=== PATIENT | male | born 1945 | race Caucasian/White ===

== ENCOUNTER 2020-06-08 05:14 | Day surgery (SDC) | payer MEDICARE, SELFPAY ==
--- NOTE | 2020-05-25 13:04 | HP.PCM_ITS ---
History and Physical History and Physical Patient Name: Miguel A Bowen : 1945 From: LEOPOLDO NASSAR NP DATE OF SURGERY: 06/08/2020 SCHEDULED PROCEDURE: Direct anterior right total hip arthroplasty HISTORY OF PRESENT ILLNESS: Preoperative history and physical exam was performed on May 24, 2020. This is a 74-year-old male was been having ongoing right hip pain for over 5 years that has progressively gotten worse over the last 7 months. His pain is 3 on a scale of 10 and 8 on a scale of 10 with activity. He describes the pain as constant, aching, sharp, stabbing and sore. The pain is worse with prolonged sitting and the use of stairs. He has had multiple near falls due to the hip pain. He does note start up pain. The hip pain does wake him at night. The patient reports inability to perform activities of daily living including dressing showering and bathing. Previous treatments include rest, heat, elevation and nonsteroidal anti-inflammatories. He occasionally uses a cane to ambulate with. The patient has a medical history pertinent for hypertension and T-cell lymphoma. Surgical clearance will be obtained from Dr. Mukherjee. The patient denies chest pain, fevers, chills, shortness of breath, difficulty breathing or recent infections. After failing conservative measures and discussing treatment options with Dr. Manohar Sadler the patient does wish to proceed with a right total hip arthroplasty. REVIEW OF SYSTEMS: ROS: Const: Denies change in appetite, fever and weight change. CV: Denies chest pain, heart murmur and irregular heartbeat. Resp: Denies cough, pneumonia, shortness of breath, tuberculosis and wheezing. GI: Denies constipation, diarrhea, heartburn, nausea, rectal itching, bloody stools and vomiting. : Denies incontinence. Musculo: Reports gait disturbance, trouble walking and weakness, but denies leg swelling and pain. Skin: Denies Raynaud's, history of shingles and tattoo. Neuro: Denies ambulatory dysfunction, dizziness, numbness/tingling and tremor. Psych: Denies anxiety, insomnia and stress. Pavel/Lymph: Denies anemia, bleeding/bruising tendency and past transfusion. Reviewed, no changes. PAST MEDICAL HISTORY: Advance Care Plan: No Advance Directives Effective Date: 04/14/2020 PMH: Medical Problems: Arthritis, Cancer, High Blood Pressure Accidents: None Surgical Hx: Gallbladder - (2009) [facility] - (2011) [facility] Complications: None Assistive Devices: Glasses, Dentures, None - (04/14/2020) Reviewed, no changes. SOCIAL HISTORY: SH: Marital: .Occupation: Retired.Work Status: Retired.Hand Dominance: Right- handed. Personal Habits: Cigarette Use: Never Smoked Cigarettes.Smokeless Tobacco: Never Used Smokeless Tobacco.E-Cigarette Use: Never used.Alcohol: Occasionally.Drug Use: Denies Use.Enjoy Exercising: Exercises 1-3 X/Week. Reviewed, no changes. VITALS: Ht: 66.5 Wt: 175lb Wt k.380 BMI: 27.8 BP: 142/88 Pulse: 88 Resp: 16 T: 98.1 T: 36.7C ALLERGIES: No Known Drug Allergy MEDICATIONS: Oxycodone HCL 5 mg 1-2 tab by mouth every 4 hours, Meloxicam 7.5 mg 1 by mouth twice a day, Promethazine HCL 12.5 mg 1-2 tablets by mouth every 6 hours, Famotidine 20 mg 1 by mouth every day, Florajen3 1po qday, Olmesartan Medoxomil/Hydrochlorothiazide 40-12.5 mg 1po qday, Centrum Silver 1po qday, Vitamin D3 1000 Unit 1po qday, Vitamin E 400 Unit 1po qday, Magnesium 250 mg 1po qday, Saw [place] 450 mg 2po qday, Calcium 600 mg 1po qday, [place]-3 Krill Oil 500 mg 1po qday PRE-OP EXAM: General appearance:NORMAL Other: Eyes: Conjunctivae and lids: NORMAL Pupils: ERR Ears, Nose, Mouth, and Throat: NORMAL Other: Inspection of lips, teeth and gums: NORMAL Other: Respiratory: Assessment of respiratory effort: NORMAL Other: Auscultation of lungs: clear to auscultation no wheezes, rhonchi or rales. Cardiovascular: Auscultation of heart: regular rate and rhythm, no murmurs, gallops or rubs. Gastrointestinal: Exam of abdomen: soft, nontender, nondistended bowel sounds present. Neurological: see below Psychiatric: Orientation to time, place and person: NORMAL Other: Mood and affect: NORMAL Other: PHYSICAL EXAMINATION: The patient rises slowly from his chair with the use of bilateral hands to get up. The patient ambulates with an antalgic gait. His right foot is externally rotated ambulation. Skin is warm, dry and intact. Obligatory external rotation with flexion. Flexion to 95. Internal rotation to 10. 25 external rotation. Pain with flexion, adduction and internal rotation. Right lower extremity is 3 mm shorter as compared to the left. Negative straight leg raise. Sensation intact to light touch. IMAGING STUDIES: 3 views of right hip including AP pelvis and AP hip and crossfire lateral obtained on April 14, 2020 reviewed reveals joint space narrowing, subchondral sclerosis and osteophyte formation consistent with severe osteoarthritis. The patient has cysts with bony erosion of the acetabulum. IMPRESSION: 1. Osteoarthritis, right hip 2. Hypertension 3. Overweight, BMI 27.8 PLAN: Dr. Manohar Sadler did discuss and review with the patient all treatment options including surgical versus nonsurgical. The patient does wish to proceed with the above-stated procedure. Potential risk, benefits and complications of the procedure were discussed in detail including but not limited to , infection, nerve and blood vessel damage, persistent pain, numbness, tingling, paresthesia, blood clot, pulmonary embolism and requirement for possible further surgery. The patient expressed full understanding and has no further questions for the doctor. The patient does agree to proceed with the above-stated procedure and has signed the surgery consent form. The patient was given prescriptions for the following medications at his preoperative visit: Oxycodone, promethazine and meloxicam. He was instructed to peanut picker over-the- counter aspirin 81 mg, extra strength Tylenol 500 mg and senna. He will bring a walker to the hospital the day of his surgery. Discussed with the patient the risks associated with the COVID-19 virus including the risk of exposure while at the hospital. The patient was reassured local hospitals have low infection rates and taken all necessary precautions to limit patient exposure to COVID-19. Limiting the patient's time in the hospital may decrease their exposure to COVID-19. The patient was notified that we will need to comply with any screening or testing the hospital wishes to perform and that surgery may be delayed for any positive test results. I have reviewed the [place] Automated Rx Reporting System (OARRS) report for this patient for refill pattern and other prescriber involvement as part of the appropriate surveillance for the provision of acute and chronic controlled medications. The report was requested and reviewed on the date of this entry and was considered in the prescribing process. This dictation was created using voice recognition software. Phonetic and/or grammatical errors may exist. ___ I have re-examined the patient. There are no clinical changes since date of exam. ___ See progress notes for changes. ___ Dictated on admission Date: Time: Signature:
[2020-06-08] VITALS (19 sets, daily range): BP systolic 92–143; BP diastolic 41–80; PULSE 77–102; RESP 16; TEMP 36–37.6; O2SAT 95–100; BMI 27.3
[2020-06-08] MEDS: Lactated Ringers 1,000 ML 999 ML IV ×2 (06:22→10:00)
[2020-06-08] MEDS: Celecoxib 200 MG Capsule 400 MG PO (06:23)
[2020-06-08] MEDS: Acetaminophen 500 MG Tablet 1000 MG PO ×2 (06:24→14:30)
[2020-06-08] MEDS: Gabapentin 600 MG Tablet PO (06:24)
[2020-06-08 06:30] LABS: Bedside Glucose 173 mg/dL (70-110)
[2020-06-08] MEDS: Tamsulosin HCl 0.4 MG Capsule PO (07:20)
--- NOTE | 2020-06-08 07:30 | RAD_ITS ---
STUDY: X-RAY - PELVIS AND RIGHT HIP REASON FOR EXAM: Male, 74 years old. Right total hip replacement in OR TECHNIQUE: 2 views of the pelvis and hip. COMPARISON: None. FINDINGS: Intraoperative imaging provided for right hip replacement. RAD/Hip 1 view with Pelvis IMPRESSION: Intraoperative imaging provided for right hip replacement. Electronically Signed: Vasquez Fernandez, at 12:33 EDT , Service support ,
[2020-06-08] MEDS: Cefazolin 2 GM in 0.9% Normal Saline 100 ML IV (07:33)
[2020-06-08] MEDS: Cefazolin 1 GM/50 ML BAG IV (07:39)
--- NOTE | 2020-06-08 08:52 | PCM.OPRPT ---
Report of Operation Date of Procedure: 06/08/20 Pre-Operative Diagnosis: Right hip primary osteoarthritis Post-Operative Diagnosis: Right hip primary osteoarthritis Surgery/Procedure Performed:: Right minimally invasive direct anterior hip replacement Description of Surgical Findings:: Stable hip with equal leg lengths Type of Anesthesia:: Spinal Anesthesiologist: Oleg[address] Special Medications: 2 g Ancef, 1 g TXA at incision, 1 g TXA closure, 10 mg Decadron, joint cocktail (5 mg Duramorph, 30 mL of 0.5% Ropivicaine, 1000 units of epinephrine, 30 mg of Toradol) Estimated Blood Loss (mL): 200 ml Fluids Replaced: 1700 mL crystalloid Description of Procedure: Components used: 1. Accolade 2 Grulla femoral stem size 6 127? 2. Veda trident 2 acetabular shell size 52 mm 3. Veda X3 polyethylene E 4. Grulla Biolox delta 36mm, -5mm femoral head Brief history operative indications: 74 yo m who failed conservative measures for their hip osteoarthritis. X-rays were consistent with osteoarthritis including joint space narrowing, osteophyte formation and subchondral cysts. Total hip replacement was discussed with the patient with risks and benefits including but not limited to blood loss, DVTs, PEs, neurovascular damage, dislocation, general risks of anesthesia including loss of life. Patient demonstrated an understanding medical clearance is obtained the patient was consented for surgery. Procedure: On the date of procedure the patient's R hip was marked in the preoperative area. Patient was then taken back to the operating room where anesthesia assumed control of the C-spine and airway and administered anesthetic. Patient was transferred to the operating table and placed in the supine position. The hips were placed at the break of the bed and a sacral bump was placed. The R lower extremity was then prepped out in a sterile fashion using chlorhexidine while the surgeon scrubbed. The PA was vital in the positioning of the patient. Upon reentering the room the R lower extremity was draped in the standard orthopedic fashion and the incision was marked. A timeout was called and everyone agreed upon the side, the site, the procedure be performed, antibody given, and patient's identity. At this time incision was made through skin, subcutaneous tissue, and fat down to fascia. The fascia was then incised and the TFL was retracted laterally. A retractor was placed on the lateral border of the femoral neck. Attention was directed to the inferior portion of the approach and all crossing vessels were identified and appropriately coagulated. A retractor was then placed on the medial portion of the femoral neck. The anterior capsule was then cleared of all soft tissue and then H shaped capsulotomy was made. The retractors were then placed inside the capsule. The femoral neck was identified and a cleanup cut was made. At this time a power corkscrew was used to remove the femoral head. Attention was then turned toward the acetabulum where the soft tissues were appropriately retracted and the acetabulum was sequentially reamed to 52 mm. A 52 mm cup was then selected and impacted into place. Acetabular liner was impacted into place and locking mechanism was verified. The position of the acetabular cup was then verified under live fluoroscopy. Attention was then turned to the femur. Soft tissue releases on the medial and lateral femoral neck were appropriately done, the leg was externally rotated and lateralized. A Montalvo retractor was placed medially and proximally to the greater trochanter this allowed appropriate visualization and exposure of the femoral canal. Rongeour was then used to remove excess lateral bone. A canal finder and entry broach were used to open the proximal canal. Once we verified we were down the femoral canal we subsequently broached up to a size 6 femur. The appropriate neck was placed in the previously selected head was trialed with a -5 mm neck. Traction was pulled and the hip was reduced with internal rotation. Once it was appropriately reduced and stability was checked. There was minimal shuck, equal leg lengths and appropriate stability with hyperextension and external rotation as well as with 90? flexion and internal rotation. Fluoroscopy was then also used to verify the position of the components and leg lengths using the contralateral side for comparison. The trial components were then dislocated the proximal femur was again exposed and the components were removed from the wound. The final components were verified and opened. The wound was copiously irrigated out with normal saline. The acetabulum was checked for any residual debris. The final components were placed and impacted. Traction and internal rotation were again used to reduce the hip. After adequate reduction the hip remained stable with appropriate leg lengths. The final components were once again checked with live fluoroscopy and were found to be satisfactory. The wound was then copiously irrigated with normal saline once more, and hemostasis was obtained. Closure was then done using #1 Vicryl runner to close the fascia. A 2-0 vicryl interuppted sutures were used to close the subcutaneous skin. A 3-0 Monocryl and Steri-Strips were used for final skin closure. A Silverlon dressing was placed. Patient was awakened by anesthesia and transferred [facility] Patient was then transferred to the PACU for recovery. Postoperative plan: Patient will get 24 hours postop antibiotics. Patient will get in-house physical therapy and will be weight-bear as tolerated. Patient will follow up in office in 2 weeks for a wound check and x-rays. - Complications No intraoperative complications - Admit VTE Documentation VTE Present on Admission: No VTE Mechan Device Prophylaxis: SCD's, Thigh High JUNIOR Hose VTE Pharm Prophylaxis ordered?: Yes
--- NOTE | 2020-06-08 10:06 | RAD_ITS ---
STUDY: X-RAY - PELVIS AND RIGHT HIP REASON FOR EXAM: Male, 74 years old. PORTABLE POST OP RIGHT HIP. TECHNIQUE: 2 views of the pelvis and hip. COMPARISON: Comparison is made with prior study done earlier today. FINDINGS: The patient is status post right total hip replacement. There is good alignment. Postoperative soft tissue changes. RAD/Hip Min 2 Views (Portable) IMPRESSION: Status post right total hip replacement. There is good alignment. Postoperative soft tissue changes. Electronically Signed: Vasquez Fernandez, at 13:31 EDT , Service support ,
[2020-06-08] MEDS: Lactated Ringers 1,000 ML 125 ML IV (11:26)
== END 2020-06-08 15:35 | disposition home or self-care (01) ==
LOC: SDC 05:15 → AC 05:24
PROVIDERS: Anesthesiology; PCP Family Medicine; Referring Provider Specialist; Visit Provider Specialist
PROC: (CPT 27284; principal; 2020-06-08 07:05)
DX: M16.11 Unilateral primary osteoarthritis, right hip (principal); I10 Essential (primary) hypertension; K21.9 Gastro-esophageal reflux disease without esophagitis; E66.3 Overweight; Z68.27 Body mass index [BMI] 27.0-27.9, adult; Z79.899 Other long term (current) drug therapy; Z11.59 Encounter for screening for other viral diseases; Z79.1 Long term (current) use of non-steroidal anti-inflammatories (NSAID)
CPT/HCPCS: 01214; 27130; 73501; 73502; 76000; 82962; 87081; 87635; 94799; 97162; 97166; C1776; G2023; J7120; J2405; U0003

== ENCOUNTER 2020-11-16 13:15 | Emergency (ER) | payer MEDICARE, SELFPAY ==
[2020-06-08 05:54] VITALS: BMI 27.3
[2020-11-16 13:16] VITALS: BP 179/105; PULSE 94; RESP 16; TEMP 36.5; O2SAT 98; BMI 29.1
--- NOTE | 2020-11-16 13:16 | CT_ITS ---
STUDY: CT HEAD STROKE PROTOCOL W/O CONTRAST INJECTION REASON FOR EXAM: Male, 75 years old. CVA, acute neuro deficit, stroke suspected. RADIATION DOSAGE (If Supplied By Facility): CTDIvol = ( 44.99 ) mGy, DLP = ( 796.11 ) mGycm TECHNIQUE: Transaxial CT imaging of the brain was performed without administration of intravenous contrast material. Individualized dose optimization techniques were used for this CT. COMPARISON: No relevant priors. FINDINGS: Normal soft tissue structures. Normal calvarium. There is mild cerebral atrophy with widening of the extra-axial spaces and ventricular dilatation. There are areas of decreased attenuation within the white matter tracts of the supratentorial brain, consistent with microvascular disease changes. Normal basal ganglia and thalami. Normal brainstem. Normal cerebellum. There is no intracranial hemorrhage. There are no findings of an acute ischemic infarction. Normal visualized paranasal sinuses. CT/STROKE Brain/Head without Cont IMPRESSION: Chronic involutional changes of the brain. N.B. : The above information has been verbally conveyed by Vasquez Fernnadez to Dr Guanakito MD, on 11/16/2020 13:37:31 (ET). Electronically Signed: Vasquez Fernandez, at 13:38 EST , Service support ,
--- NOTE | 2020-11-16 13:18 | ED.DCSUM_ITS ---
History of Present Illness Chief Complaint: Neuro S/Sx Informant: Patient, Sales Administration Manager Onset: Today Current Severity: Mild Maximum Severity: Mild Narrative: Patient brought in by EMS as a possible stroke. Patient reports not remembering anything that he did after 930 this morning. He reportedly talked to his on the phone about noon and she stated that he seemed confused and maybe his speech was slightly altered. Patient does state that he is starting to remember more details about what happened today. He denies any paresthesias, problems with speech, or weakness. - Past Medical History (1) Hypertension Status: Chronic Past Medical History - Allergies and Home Meds Allergies/Adverse Reactions: Allergies No Known Allergies Allergy (Verified 11/16/20 13:29) Primary Care Physician: Juan Mukherjee MD [Primary Care Provider] - Surgical History: total hip arthroplasty Lives: Spouse/ Significant Other Smoking Status: Never smoker Review of Systems General: Denies: Chills, Fever Eyes: Denies: Visual changes - bilaterally ENT: Denies: Bilateral ear pain Cardiovascular: Denies: Chest pain Respiratory: Denies: Dyspnea, Cough Gastrointestinal: Denies: Abdominal pain, Vomiting, Diarrhea Genitourinary: Denies: Dysuria Musculoskeletal: Denies: Swelling, Extremity Pain Skin: Denies: Rash Neurological: Denies: Headache, Weakness, Parasthesia Hematologic: Denies: Easy bruising, Easy bleeding Allergy: Denies: Uticaria Physical Exam Inital Vital Signs reviewed: Yes General: Well nourished, Well developed Head: Normocephalic ENT: Moist mucous membranes Neck: Supple Cardiovascular: Regular rate, Regular rhythm Respiratory: No distress, CTA bilaterally Abdomen: Soft, Nontender, Normal bowel sounds Extremities: Nontender Skin: Normal color Neurological: Alert, Oriented x3, Normal Strength, Normal Sensation, - - NIH equals 0 at the time of my exam. Psychological: Normal affect Diagnostic/Tx/Re-eval Impressions Brain CT 11/16/20 13:16 IMPRESSION: Chronic involutional changes of the brain. N.B. : The above information has been verbally conveyed by Vasquez Fernandez to Dr Guanakito MD, on 11/16/2020 13:37:31 (ET). Electronically Signed: Vasquez Fernandez, at 13:38 EST , Service support , ADDENDUM: 11/16/20 1345 IMPRESSION: Chronic involutional changes of the brain. N.B. : The above information has been verbally conveyed by Vasquez Fernandez to Dr Guanakito MD, on 11/16/2020 13:37:31 (ET). Electronically Signed: Vasquez Fernandez, at 13:38 EST , Service support , Brain MRI 11/16/20 13:33 IMPRESSION: 1. No acute findings. 2. Unremarkable age-appropriate brain. Electronically Signed: Antony Mukherjee, at 16:12 EST Tel , Service support , Chest X-Ray 11/16/20 13:45 IMPRESSION: Cardiomegaly with low volume inspiration and bibasilar atelectasis. No acute finding. Electronically Signed: Gunnar Greenwood MD at 14:02 EST , Service support , 11/16/20 13:16 STROKE Brain/Head without Cont [CT] Stat 11/16/20 13:33 Brain without Contrast [MRI] Stat 11/16/20 13:45 Chest 1 View [RAD] Stat Laboratory Results 11/16/20 11/16/20 11/16/20 13:14 13:14 13:14 WBC 7.7 RBC 4.65 Hgb 14.6 Hct 42.9 MCV 92.3 MCH 31.4 MCHC 34.0 RDW Std Deviation 47.6 H RDW Coeff of Alfred 14.1 Plt Count 280 MPV 9.7 Immature Gran % (Auto) 0.400 Neut % (Auto) 56.4 Lymph % (Auto) 33.2 [place] % (Auto) 7.8 Eos % (Auto) 1.4 Baso % (Auto) 0.8 Absolute Neuts (auto) 4.3 Absolute Lymphs (auto) 2.55 Nucleated RBC % 0 PT 12.1 INR 0.9 APTT 26.2 Sodium 139 Potassium 3.9 Chloride 103 Carbon Dioxide 29.0 Anion Gap 7 BUN 20 H Creatinine 1.10 Estim Creat Clear Calc 53.41 Est GFR (MDRD) Af Amer 84 Est GFR (MDRD) Non-Af 69 BUN/Creatinine Ratio 18.2 Glucose 124 H Calcium 9.2 Troponin I < 0.015 - EKG Initial EKG Interpretation: Sinus Rhythm - Sinus at 96 with PACs. No acute ischemia. - Medical Decision Making Patient was made a stroke alert by prehospital arrival. On arrival patient's NIH score is 0. [facility] neurologist did be met and examined the patient on the computer. She suggested obtaining a MRI and if negative diagnosis would be transient global amnesia. MRI is obtained and unremarkable. At this time patient states he is remembering more and really has limited deficit at this point as far as his memory is concerned. Patient will be discharged home with his . Return instructions are provided. ED Disposition - Plan for ED Patient: Disposition: Home or Assisted Living Diagnosis: Transient global amnesia Referrals: Juan Mukherjee MD [Primary Care Provider] - Additional Instructions: Your episode today was caused by Transient Global Amnesia. Your studies here including an MRI of your brain are normal. Your symptoms have largely resolved at this time. Please return for recurrent symptoms or any concerns.
[2020-11-16 13:25] LABS: Absolute Lymphocyte Count 2.55 X10^3/uL (0.83-4.51); Absolute Neutrophil Count 4.3 X10^3/uL (2.0-7.7); Basophil# 0.06 X10^3/uL; Basophil% 0.8 % (0-1); Eosinophil# 0.11 X10^3/uL; Eosinophils% 1.4 % (0-5); Hematocrit 42.9 % (40-54); Hemoglobin 14.6 g/dL (13.0-16.5); Lymphocyte # 2.55 X10^3/ul (4.0); Lymphocyte % 33.2 % (19-41); Mean Corpuscular Hgb 31.4 pg (27.0-32.0); Mean Corpuscular Volume 92.3 fL (80-94); Mean Platelet Vol. 9.7 fl (6.2-12.0); Monocyte% 7.8 % (0-10); NRBC Flagged by Analyzer 0 % (0-5); Neutrophil # 4.33 X10^3/uL (2.7-7.7); Neutrophil % 56.4 % (47-70); Platelet Count 280 K/mm3 (150-450); RBC Distribution Width CV 14.1 % (11.6-14.6); RBC Distribution Width SD 47.6 fl (35.1-43.9); Red Blood Count 4.65 M/mm3 (4.6-6.2); White Blood Count 7.7 K/mm3 (4.4-11.0)
[2020-11-16 13:27] VITALS: BMI 29.1
[2020-11-16 13:28] VITALS: O2SAT 97
--- NOTE | 2020-11-16 13:29 | CM.ED ---
Social Work Responding to stroke alert. No family present. Patient alert and oriented. Will continue to follow as needed. Jonathan Lopez MSW, CEES
[2020-11-16 13:32] VITALS: BP 152/97; PULSE 87; RESP 16; O2SAT 95
[2020-11-16 13:33] LABS: International Normalized Ratio 0.9; Prothrombin Time (Protime)PT. 12.1 SECONDS (11.7-14.9)
--- NOTE | 2020-11-16 13:33 | MRI_ITS ---
STUDY: MRI BRAIN WITHOUT CONTRAST REASON FOR EXAM: Male, 75 years old. Neurologic deficit, acute memory issues TECHNIQUE: Standardized multiplanar fat and water weighted pulse sequences were obtained. COMPARISON: Same day CT head FINDINGS: Brain parenchyma is intact without focal lesions, mass effect, extra parenchymal fluid collections, hydrocephalus or herniation. There are mild age-appropriate white matter gliotic changes. Major vascular flow structures are intact. Craniocervical junction is unremarkable. Appearance is stable since prior. MRI/Brain without Contrast IMPRESSION: 1. No acute findings. 2. Unremarkable age-appropriate brain. Electronically Signed: Antony Mukherjee, at 16:12 EST Tel , Service support ,
[2020-11-16 13:34] LABS: Partial Thromboplast Time 26.2 Seconds (24.1-36.2)
[2020-11-16 13:41] LABS: Anion Gap 7 (5-15); BUN 20 mg/dL (7-18); BUN/Creat Ratio 18.2 RATIO (10-20); Calcium,Total 9.2 mg/dL (8.5-10.1); Chloride 103 mmol/L (98-107); EST Glomerular Filtration Rate 69 mL/min (>60); Est Glom Filt Rate - Afr Amer 84 mL/min (>60); Estimated Creatinine Clearance 53.41 ml/min; Glucose 124 mg/dL (74-106); Potassium 3.9 mmol/L (3.5-5.1); Sodium Level 139 mmol/L (136-145)
--- NOTE | 2020-11-16 13:45 | RAD_ITS ---
STUDY: X-RAY CHEST REASON FOR EXAM: Male, 75 years old. Memory loss. History of T-cell lymphoma. TECHNIQUE: Single frontal view of the chest. COMPARISON: None. FINDINGS: Low volume inspiration with bibasilar atelectasis. There is no demonstrated pleural abnormality. Cardiomegaly. Normal mediastinum and marixa. Normal visualized pulmonary arteries. Normal visualized aortic arch and descending thoracic aorta. Normal visualized thoracic spine. Normal visualized ribs, clavicles, and shoulders. There is no demonstrated abnormality of the visualized soft tissue structures of the upper abdomen. RAD/Chest 1 View IMPRESSION: Cardiomegaly with low volume inspiration and bibasilar atelectasis. No acute finding. Electronically Signed: Gunnar Greenwood MD at 14:02 EST , Service support ,
[2020-11-16 16:40] VITALS: BP 137/85; PULSE 16; PULSE 88; RESP 16; RESP 88; O2SAT 97
== END 2020-11-16 16:41 | disposition home or self-care (01) ==
PROVIDERS: Emergency Provider Emergency Medicine; PCP Family Medicine
DX: G45.4 Transient global amnesia (principal); I10 Essential (primary) hypertension; Z79.899 Other long term (current) drug therapy
CPT/HCPCS: 70450; 70551; 71045; 80048; 84484; 85025; 85610; 85730; 93005; 99285; A4216

== ENCOUNTER → 2020-12-14 11:13 | Outpatient (CLI) | payer MEDICARE, SELFPAY ==
[2020-12-14 10:13] VITALS: BMI 27.8
[2020-12-14 13:07] LABS: Cholesterol 225 mg/dL (200); High Density Lipoprotein 67 mg/dL; Triglycerides 199 mg/dL; Very Low Density Lipoprotein 40 mg/dL (5-40)
== END ==
PROVIDERS: PCP Internal Medicine; Referring Provider Internal Medicine; Visit Provider Internal Medicine
DX: I10 Essential (primary) hypertension (principal)
CPT/HCPCS: 36415; 80061

== ENCOUNTER → 2021-05-31 15:40 | Outpatient (CLI) | payer MEDICARE, SELFPAY ==
[2021-05-31 15:26] VITALS: BMI 28.1
[2021-05-31 16:53] LABS: Absolute Lymphocyte Count 2.63 X10^3/uL (0.83-4.51); Absolute Neutrophil Count 5.5 X10^3/uL (2.0-7.7); Basophil# 0.07 X10^3/uL; Basophil% 0.8 % (0-1); Eosinophil# 0.11 X10^3/uL; Eosinophils% 1.2 % (0-5); Hematocrit 44.9 % (40-54); Hemoglobin 14.9 g/dL (13.0-16.5); Lymphocyte # 2.63 X10^3/ul (0.83-4.51); Lymphocyte % 28.7 % (19-41); Mean Corp Hgb Conc 33.2 g/dL (32-36); Mean Corpuscular Volume 93.5 fL (80-94); Mean Platelet Vol. 9.5 fl (6.2-12.0); Monocyte# 0.84 X10^3/uL; Monocyte% 9.2 % (0-10); NRBC Flagged by Analyzer 0 % (0-5); Neutrophil # 5.45 X10^3/uL (2.7-7.7); Neutrophil % 59.4 % (47-70); Platelet Count 290 K/mm3 (150-450); RBC Distribution Width CV 14.5 % (11.6-14.6); White Blood Count 9.2 K/mm3 (4.4-11.0)
[2021-05-31 17:10] LABS: ALB/GLOB Ratio 1.1 RATIO (0.9-2.4); AST(SGOT) 23 U/L (15-37); Alanine Aminotransfer ALT/SGPT 49 U/L (16-61); Albumin, Serum 4.1 g/dL (3.2-5.0); Alkaline Phosphatase 86 U/L (45-117); Anion Gap 7 (5-15); BUN 18 mg/dL (7-18); BUN/Creat Ratio 14.5 RATIO (10-20); Calcium,Total 9.9 mg/dL (8.5-10.1); Chloride 100 mmol/L (98-107); Creatinine, Serum 1.24 mg/dL (0.70-1.30); EST Glomerular Filtration Rate 60 mL/min (>60); Est Glom Filt Rate - Afr Amer 73 mL/min (>60); Globulin 3.8 g/dL (2.2-4.2); Glucose 94 mg/dL (74-106); PSA,Total - Annual Screen 5.55 ng/mL (0.00-4.00); Protein, Total 7.9 g/dL (6.4-8.2); Sodium Level 137 mmol/L (136-145)
== END ==
PROVIDERS: PCP Internal Medicine; Referring Provider Internal Medicine; Visit Provider Internal Medicine
DX: I10 Essential (primary) hypertension (principal); N40.0 Benign prostatic hyperplasia without lower urinary tract symptoms; Z12.5 Encounter for screening for malignant neoplasm of prostate
CPT/HCPCS: 36415; 80053; 84153; 85025; G0103

== ENCOUNTER → 2021-06-06 14:44 | Outpatient (CLI) | payer MEDICARE, SELFPAY ==
[2021-05-31 15:26] VITALS: BMI 28.1
--- NOTE | 2021-06-06 14:48 | US_ITS ---
STUDY: RENAL ULTRASOUND - COMPLETE REASON FOR EXAM: Male, 75 years old. Renal cyst. TECHNIQUE: Ultrasound evaluation of the kidneys was performed with real-time and static bocanegra-scale imaging. COMPARISON: None. FINDINGS: RIGHT KIDNEY: Normal location of the right kidney, which is normal in size. The right kidney measures 10.3 cm. There is increased renal cortical echogenicity. The renal cortex measures 1.5 cm. There is no right renal mass or cyst. There are no right renal calculi. There is no right hydronephrosis. DISTAL RIGHT URETER: There is non-visualization of the distal right ureter. There is no demonstrated right ureterovesical junction calculus. There is a visualized right ureteral jet. LEFT KIDNEY: Normal location of the left kidney, which is normal in size. The left kidney measures 11.3 cm. Increased renal cortical echogenicity. The renal cortex measures 1.3 cm. There is no left renal mass or cyst. There are no left renal calculi. There is no left hydronephrosis. DISTAL LEFT URETER: There is non-visualization of the distal left ureter. There is no demonstrated left ureterovesical junction calculus. There is a visualized left ureteral jet. BLADDER: The distended urinary bladder has a volume of 112 ml. There is a normal wall thickness of the distended urinary bladder. There is no demonstrated mass within the urinary bladder. There are no demonstrated bladder calculi. The prostate is enlarged measuring 6.8 x 6.8 x 6.4 cm with a volume of 253.7 mL. US/Kidney and Bladder IMPRESSION: 1. Increased renal cortical echogenicity suggesting medical renal disease. The kidneys are otherwise unremarkable. There is no visualized renal cysts. 2. Normal urinary bladder. 3. Enlarged prostate. Electronically Signed: Scott Lopez DO at 23:55 EDT Tel [phone], Service support ,
== END ==
PROVIDERS: PCP Internal Medicine; Referring Provider Internal Medicine; Visit Provider Internal Medicine
DX: N28.1 Cyst of kidney, acquired (principal)
CPT/HCPCS: 76770

== ENCOUNTER 2021-12-04 13:19 | Outpatient (CLI) | payer MEDICARE, SELFPAY ==
[2021-12-04 15:55] LABS: Anion Gap 8 (5-15); BUN 28 mg/dL (7-18); Calcium,Total 9.8 mg/dL (8.5-10.1); Chloride 102 mmol/L (98-107); Cholesterol 218 mg/dL (200); Creatinine, Serum 1.27 mg/dL (0.70-1.30); EST Glomerular Filtration Rate 58 mL/min (>60); Est Glom Filt Rate - Afr Amer 71 mL/min (>60); Glucose 108 mg/dL (74-106); High Density Lipoprotein 66 mg/dL; PSA,Total- Diagnostic 6.04 ng/mL (0.0-4.0); Potassium 4.1 mmol/L (3.5-5.1); Sodium Level 139 mmol/L (136-145); Triglycerides 256 mg/dL; Very Low Density Lipoprotein 51 mg/dL (5-40)
== END 2021-12-04 23:59 | disposition short-term general hospital (02) ==
LOC: BIMLAB 13:19
PROVIDERS: PCP Internal Medicine; Referring Provider Internal Medicine; Visit Provider Internal Medicine
DX: I10 Essential (primary) hypertension (principal); N40.0 Benign prostatic hyperplasia without lower urinary tract symptoms
CPT/HCPCS: 36415; 80048; 80061; 84153

== ENCOUNTER → 2022-05-17 | Outpatient (CLI) | payer MEDICARE, SELFPAY ==
[2022-05-17 16:18] LABS: Anion Gap 5 (5-15); BUN 24 mg/dL (7-18); BUN/Creat Ratio 16.1 RATIO (10-20); Chloride 105 mmol/L (98-107); Creatinine, Serum 1.49 mg/dL (0.70-1.30); EST Glomerular Filtration Rate 49 mL/min (>60); Est Glom Filt Rate - Afr Amer 59 mL/min (>60); Glucose 94 mg/dL (74-106); Potassium 3.9 mmol/L (3.5-5.1); Sodium Level 139 mmol/L (136-145); Uric Acid 9.5 mg/dL (3.5-7.2)
== END | disposition home or self-care (01) ==
LOC: BIMLAB 14:30
PROVIDERS: PCP Internal Medicine; Referring Provider Internal Medicine; Visit Provider Internal Medicine
DX: M10.9 Gout, unspecified (principal)
CPT/HCPCS: 36415; 80048; 84550

== ENCOUNTER → 2022-06-04 | Outpatient (CLI) | payer MEDICARE, SELFPAY ==
[2022-06-04 15:01] LABS: Absolute Lymphocyte Count 2.38 X10^3/uL (0.83-4.51); Absolute Neutrophil Count 5.2 X10^3/uL (2.0-7.7); Basophil# 0.07 X10^3/uL; Basophil% 0.8 % (0-1); Eosinophil# 0.18 X10^3/uL; Eosinophils% 2.1 % (0-5); Hematocrit 40.5 % (40-54); Hemoglobin 13.5 g/dL (13.0-16.5); Lymphocyte # 2.38 X10^3/ul (0.83-4.51); Lymphocyte % 27.3 % (19-41); Mean Corp Hgb Conc 33.3 g/dL (32-36); Mean Corpuscular Hgb 31.5 pg (27.0-32.0); Mean Corpuscular Volume 94.4 fL (80-94); Monocyte# 0.87 X10^3/uL; NRBC Flagged by Analyzer 0 % (0-5); Neutrophil # 5.19 X10^3/uL (2.7-7.7); Neutrophil % 59.5 % (47-70); Platelet Count 291 K/mm3 (150-450); RBC Distribution Width CV 13.8 % (11.6-14.6); RBC Distribution Width SD 47.7 fl (35.1-43.9); Red Blood Count 4.29 M/mm3 (4.6-6.2); White Blood Count 8.7 K/mm3 (4.4-11.0)
[2022-06-04 15:26] LABS: ALB/GLOB Ratio 1.1 RATIO (0.9-2.4); AST(SGOT) 28 U/L (15-37); Alanine Aminotransfer ALT/SGPT 44 U/L (16-61); Albumin, Serum 3.9 g/dL (3.2-5.0); Alkaline Phosphatase 82 U/L (45-117); Anion Gap 8 (5-15); BUN 22 mg/dL (7-18); BUN/Creat Ratio 17.6 RATIO (10-20); Calcium,Total 9.3 mg/dL (8.5-10.1); Chloride 103 mmol/L (98-107); Cholesterol 202 mg/dL (200); Creatinine, Serum 1.25 mg/dL (0.70-1.30); EST Glomerular Filtration Rate 59 mL/min (>60); Est Glom Filt Rate - Afr Amer 72 mL/min (>60); Globulin 3.5 g/dL (2.2-4.2); Glucose 106 mg/dL (74-106); High Density Lipoprotein 60 mg/dL; Potassium 3.8 mmol/L (3.5-5.1); Protein, Total 7.4 g/dL (6.4-8.2); Sodium Level 139 mmol/L (136-145); Triglycerides 248 mg/dL; Uric Acid 7.4 mg/dL (3.5-7.2); Very Low Density Lipoprotein 50 mg/dL (5-40)
== END | disposition home or self-care (01) ==
PROVIDERS: PCP Internal Medicine; Referring Provider Internal Medicine; Visit Provider Internal Medicine
DX: I10 Essential (primary) hypertension (principal); M10.9 Gout, unspecified
CPT/HCPCS: 36415; 80053; 80061; 84550; 85025

== ENCOUNTER → 2022-11-13 | Outpatient (CLI) | payer MEDICARE, SELFPAY ==
--- NOTE | 2022-11-13 15:29 | CT_ITS ---
EXAM: CT ABDOMEN WITHOUT INTRAVENOUS CONTRAST CLINICAL INDICATION: Abd hernia -- No oral or IV contrast. TECHNIQUE: Helically acquired images were obtained of the abdomen without intravenous contrast. This CT exam was performed using one or more of the following dose reduction techniques: automated exposure control, adjustment of the mA and/or kV according to patient size, and/or use of iterative reconstruction technique. This report was created using [employer] report generation technology. COMPARISON: None. FINDINGS: LOWER THORAX: Unremarkable. Lung bases are clear. No cardiomegaly. No significant pericardial effusion. LIVER: Unremarkable. Homogeneous. GALLBLADDER AND BILE DUCTS: There are surgical clips from a cholecystectomy. No intra- or extrahepatic biliary ductal dilation. PANCREAS: Unremarkable. No focal cystic mass. SPLEEN: Unremarkable. Normal size without focal cystic or solid mass. ADRENALS: Unremarkable. No nodules. KIDNEYS AND URETERS: Unremarkable. Normal renal size and position. No hydronephrosis. STOMACH AND BOWEL: There is a minimal ventral hernia in the upper abdomen with small amount of mesenteric fat present. No bowel loops are seen. No stomach or bowel distention. No focal inflammatory change. INTRAPERITONEAL SPACE: Unremarkable. No ascites or other fluid collection. No free air. BONES/JOINTS: Unremarkable. No suspicious lytic or blastic abnormality. SOFT TISSUES: See above. VASCULATURE: Unremarkable. Abdominal aorta is non-dilated. LYMPH NODES: No enlarged lymph nodes. CT/Abdomen without IV Contrast IMPRESSION: Minimal ventral hernia in the upper abdomen with mesenteric fat in the hernia sac. No other abnormalities are identified. Electronically Signed: Michael Ochoa MD at 0:06 [facility] [[email or web address]] ,
== END | disposition home or self-care (01) ==
LOC: CT 15:28
PROVIDERS: PCP Internal Medicine; Visit Provider Surgery
DX: K43.9 Ventral hernia without obstruction or gangrene (principal)
CPT/HCPCS: 74150

== ENCOUNTER → 2022-11-14 | Outpatient (CLI) | payer MEDICARE, SELFPAY | END | disposition home or self-care (01) | LOC: LABSPEC 10:39 | PROVIDERS: PCP Internal Medicine; Referring Provider Physician Assistant; Visit Provider Physician Assistant | DX: Z20.822 Contact with and (suspected) exposure to COVID-19 (principal) | CPT/HCPCS: 87635; U0003; U0005 ==

== ENCOUNTER → 2023-01-08 | Outpatient (CLI) | payer OTHER, SELFPAY ==
[2023-01-08 12:29] LABS: PSA,Total- Diagnostic 5.74 ng/mL (0.0-4.0)
== END | disposition home or self-care (01) ==
LOC: LAB 10:28
PROVIDERS: PCP Internal Medicine; Referring Provider Urology; Visit Provider Urology
DX: R97.20 Elevated prostate specific antigen [PSA] (principal)
CPT/HCPCS: 36415; 84153

== ENCOUNTER 2023-01-15 11:04 | Day surgery (SDC) | payer MEDICARE, SELFPAY ==
--- NOTE | 2023-01-08 10:23 | EKG12_ITS ---
Test Reason : PREOP Blood Pressure : / mmHG Vent. Rate : 075 BPM Atrial Rate : 075 BPM P-R Int : 166 ms QRS Dur : 086 ms QT Int : 386 ms P-R-T Axes : 008 -19 031 degrees QTc Int : 431 ms Normal sinus rhythm Normal ECG Confirmed by MARCELLO BUI, DOT ([id number]), movie editor JESSICA CEDENO ([id number]) on 01/09/2023 8:57:08 AM Referred By: KRISTA Confirmed By:DOT ARMENDARIZ MD
[2023-01-08 11:58] LABS: Hematocrit 41.6 % (40-54); Hemoglobin 13.7 g/dL (13.0-16.5); Mean Corp Hgb Conc 32.9 g/dL (32-36); Mean Corpuscular Hgb 31.4 pg (27.0-32.0); Mean Corpuscular Volume 95.4 fL (80-94); Mean Platelet Vol. 10.2 fl (6.2-12.0); Platelet Count 277 K/mm3 (150-450); RBC Distribution Width CV 13.7 % (11.6-14.6); RBC Distribution Width SD 48.6 fl (35.1-43.9); Red Blood Count 4.36 M/mm3 (4.6-6.2); White Blood Count 5.9 K/mm3 (4.4-11.0)
[2023-01-08 12:00] LABS: Partial Thromboplast Time 28.2 Seconds (24.1-36.2)
[2023-01-08 12:21] LABS: AST(SGOT) 22 U/L (15-37); Alanine Aminotransfer ALT/SGPT 32 U/L (16-61); Albumin, Serum 4.2 g/dL (3.2-5.0); Alkaline Phosphatase 83 U/L (45-117); Anion Gap 9 (5-15); BUN 25 mg/dL (7-18); BUN/Creat Ratio 20.2 RATIO (10-20); Calcium,Total 9.5 mg/dL (8.5-10.1); Chloride 103 mmol/L (98-107); Creatinine, Serum 1.24 mg/dL (0.70-1.30); EST Glomerular Filtration Rate 60 mL/min (>60); Est Glom Filt Rate - Afr Amer 72 mL/min (>60); Globulin 3.4 g/dL (2.2-4.2); Glucose 133 mg/dL (74-106); Potassium 3.7 mmol/L (3.5-5.1); Protein, Total 7.6 g/dL (6.4-8.2); Sodium Level 141 mmol/L (136-145)
[2023-01-15] VITALS (7 sets, daily range): BP systolic 101–158; BP diastolic 60–80; PULSE 72–94; RESP 16; TEMP 36.1–36.6; O2SAT 92–100; BMI 27.0
--- NOTE | 2023-01-15 11:19 | HP.PCM.SX_ITS ---
[facility] - [facility] Date of Admission: 01/15/23 HPI Narrative ERIKA MUSE, is a 77 M who presents for repair of incisional hernia in the epigastric region. Patient's CAT scan only showed that 1 area of concern that was able to be felt during exam. Patient denies any changes since last seen in the office. Office visit 11/09/22 HPI HPI: 77-year-old male presents with incisional epigastric hernia.? Patient states that at [facility] in 2008 he had an open gallbladder.? Patient states he noticed a hernia at the epigastric area for about a year and a half.? States over the last 2 weeks he has had some increased creased sneezing initially which has resolved but now the area is more uncomfortable and does not burning when he touches the area.? Patient's never had a current CAT scan and does have a large midline incision.? Otherwise patient denies any issues eating nausea or vomiting or issues with bowel movements. [facility] Medical History (Updated 01/07/23 @ 10:12 by Cyndie Villavicencio) Abdominal hernia Alcohol use Arthritis Back pain BPH (benign prostatic hyperplasia) Change in skin mole Enlarged prostate Excessive bleeding GERD (gastroesophageal reflux disease) Gout Health care maintenance Hx of gout Hypertension Leg cramps Mass of kidney Non-smoker Pain of left great toe Renal cyst T-cell lymphoma TIA (transient ischemic attack) Wears dentures Wears glasses Home Medications calcium carbonate-vitamin D3 600 mg-125 unit tablet 2 ea PO DAILY 05/25/20 [History Last Taken Unknown] cholecalciferol (vitamin D3) 25 mcg (1,000 unit) tablet 1,000 unit PO DAILY 05/25/20 [History Last Taken Unknown] famotidine 20 mg tablet 20 mg PO BID gerd 05/25/20 [History Last Taken 06/08/20] magnesium oxide 500 mg PO DAILY 05/25/20 [History Last Taken Unknown] multivitamin with minerals 1 ea PO DAILY 05/25/20 [History Last Taken Unknown] saw palmetto 500 mg capsule 1,250 mg PO DAILY 05/25/20 [History Last Taken Unknown] krill 1,000 mg-omega-3 170 mg-dha 50 mg-epa 80 th-gfaecc-rqftd capsule 1 cap PO DAILY 12/14/20 [History Last Taken Unknown] vitamin E (dl, acetate) 450 mg (1,000 unit) capsule 450 mg PO DAILY 12/14/20 [History Last Taken Unknown] valacyclovir 1 gram tablet 1,000 mg PO Q12H PRN cold sores #90 tabs 09/25/22 [Rx Last Taken Unknown] guaifenesin 400 mg tablet 400 mg PO Q4H PRN congestion #30 tabs 11/14/22 [Rx Last Taken Unknown] allopurinol 100 mg tablet 200 mg PO DAILY 3 months #180 tabs 12/13/22 [Rx Last Taken Unknown] olmesartan 40 mg-hydrochlorothiazide 12.5 mg tablet (Benicar HCT) 1 tab PO DAILY bp #90 tabs 12/13/22 [Rx Last Taken Unknown] Allergy/AdvReac Type Severity Reaction Status Date / Time prednisolone Allergy Intermediate Cough and Verified 01/07/23 09:57 Loss of Voice Surgical History (Updated 01/07/23 @ 10:12 by Cyndie Villavicencio) History of cardiac catheterization History of cholecystectomy History of hernia repair History of right hip replacement Social History Smoking Status: Never smoker alcohol intake: current alcohol intake frequency: holidays/special occasions only substance use type: does not use what type of physical activity do you participate in: walking and other det ails: wood shop frequency: daily Physical Exam Const alert, oriented x3 and no apparent distress HEENT normocephalic and head/scalp atraumatic Resp normal respiratory effort Cardio regular rate GI GI Narrative: Inspection: non-distended Palpation: soft, no guarding, hernia (Superior portion of his midline hernia ) and nontender Other: Patient does have a large diastases recti-no other hernia areas per CT Extremity no clubbing, cyanosis or edema Neuro CN's II-XII intact bilaterally Psych mental status grossly normal Results Lab / Micro Data Result Diagrams: 01/08/23 10:36 01/08/23 10:36 Assessment & Plan Assessment/Plan (1) Ventral incisional hernia without gangrene: PLAN: Plan Plan to do repair of incisional hernia with mesh. Reviewed the procedure with the patient including the risks, including but not limited to infection, bleeding, injury to another organ (i.e. small bowel), and recurrence. All questions were answered. Patient and his had no further questions at this time. Micki Marroquin M.D. Pager: [phone] [facility] [address] [place] [address], [address] [place] [address] Office: [phone]
[2023-01-15] MEDS: Lactated Ringers 1,000 ML 15 ML IV ×2 (11:40→13:41)
[2023-01-15] MEDS: Cefazolin 2 GM in 0.9% Normal Saline 100 ML IV (12:25)
[2023-01-15] MEDS: Bupiv/Epi 0.25% 30 ML Vial (13:29)
--- NOTE | 2023-01-15 14:05 | PCM.OPRPT ---
Report of Operation Date of Procedure: 01/15/23 Pre-Operative Diagnosis: Incisional hernia Post-Operative Diagnosis: Same Surgery/Procedure Performed:: Incisional hernia repair with mesh Surgeon: Micki Marroquin Type of Anesthesia: General/Supplemental Anesthesiologist: Devon Everett Special Medications: Ancef 2 g IV x1 Specimen's removed: None Estimated Blood Loss (mL): < 10 cc Description of Procedure: Patient is brought into operating placed spinal operating table. Timeout was completed verifying correct patient, procedure, site, positioning, special equipment prior began procedure. General anesthesia was induced. Patient's abdomen prepped draped usual sterile fashion with chlorhexidine. Incision was planned over the epigastric incisional hernia. This was deepened with electrocautery to the fascia. The fascia was cleared. The fascial defect was about 3 cm x 1.[address] medium hernia patch was chosen lot [id number] REF [id number]?lateral tails were secured to the fascia with 2-0 Prolene. The fascial defect and superior and inferior portions of the mesh were secured with 2 okpmjr-ld-grime sutures of 0 Prolene. The wound was closed with subdermal interrupted sutures of 3-0 Vicryl. Skin was closed with 4-0 Monocryl and Steri-Strips and OpSite. Patient was extubated. Patient tolerated procedure well was taken to the postanesthesia care unit in stable condition. Grafts/Implants Used: Ventralex ST medium hernia patch was chosen lot [id number] REF [id number] Complications none
--- NOTE | 2023-01-15 14:08 | DCINST_ITS ---
Discharge Instructions Diet Discharge Diet: No restrictions Activity Discharge Activity: May Shower (24 hr from surgery) Dressing / Incision Call your doctor if your incision/area has: Continuous Slow Oozing, Sudden Increased Bleeding, Increased Pain/ Swelling, Increased Redness and Swelling at the incision site Call your doctor if you observe: Fever of 101 or Higher Remove Dressing in: 2 days Follow Up Care Please Follow Up With: Micki Marroquin MD When: Call the office [phone] for follow-up in 2 weeks. Test Results: Test results from this visit will be discussed in further detail at your follow- up appointment, if applicable. Discharge Plan Admission Attending Provider: Micki Marroquin Primary Care Provider: Sonali Best Discharge Orders/Prescriptions Prescriptions: New tramadol 50 mg tablet 50 mg PO Q6H PRN (Reason: pain) 3 Days Qty: 5 0RF Continued vitamin E (dl, acetate) 450 mg (1,000 unit) capsule 450 mg PO DAILY guaifenesin 400 mg tablet 400 mg PO Q4H PRN (Reason: congestion) Qty: 30 1RF famotidine 20 MG tablet 20 mg PO BID saw palmetto 500 MG capsule 1,250 mg PO DAILY multivitamin with minerals 1 EACH tablet 1 ea PO DAILY magnesium oxide 250 MG tablet 500 mg PO DAILY calcium carbonate-vitamin D3 1 EACH tablet 2 ea PO DAILY cholecalciferol (vitamin D3) 1,000 UNIT tablet 1,000 unit PO DAILY [id number] mg capsule 1 cap PO DAILY Label Comments: 300 mg valacyclovir 1 gram tablet 1,000 mg PO Q12H PRN (Reason: cold sores) Qty: 90 1RF Rx Instructions: Use as needed for cold sores olmesartan-hydrochlorothiazide [Benicar HCT] 40-12.5 mg tablet 1 tab PO DAILY Qty: 90 1RF allopurinol 100 mg tablet 200 mg PO DAILY 90 Days Qty: 180 2RF Referrals / Follow Up: Sonali Best MD [Primary Care Provider] -
== END 2023-01-15 18:13 | disposition home or self-care (01) ==
LOC: SDC 11:07 → AC 11:07
PROVIDERS: Anesthesiology; PCP Internal Medicine; Referring Provider Surgery; Visit Provider Surgery
PROC: (CPT 49593; principal; 2023-01-15 12:30)
DX: K43.2 Incisional hernia without obstruction or gangrene (principal); K21.9 Gastro-esophageal reflux disease without esophagitis; M79.675 Pain in left toe(s); I10 Essential (primary) hypertension; Z86.73 Personal history of transient ischemic attack (TIA), and cerebral infarction without residual deficits; Z79.899 Other long term (current) drug therapy
CPT/HCPCS: 49593; 00752; 36415; 80048; 80076; 85027; 85610; 85730; 93005; C1781; J7120; J2405

== ENCOUNTER → 2023-03-18 | Outpatient (CLI) | payer MEDICARE, SELFPAY ==
[2023-03-18 15:26] LABS: Uric Acid 6.9 mg/dL (3.5-7.2)
== END | disposition home or self-care (01) ==
LOC: BIMLAB 13:29
PROVIDERS: PCP Internal Medicine; Visit Provider Internal Medicine
DX: M10.9 Gout, unspecified (principal)
CPT/HCPCS: 36415; 84550

== ENCOUNTER → 2023-09-16 | Outpatient (CLI) | payer MEDICARE, SELFPAY ==
[2023-09-16 16:12] LABS: Anion Gap 5 (5-15); BUN 24 mg/dL (7-18); BUN/Creat Ratio 19.8 RATIO (10-20); Calcium,Total 9.6 mg/dL (8.5-10.1); Chloride 105 mmol/L (98-107); Creatinine, Serum 1.21 mg/dL (0.70-1.30); EST Glomerular Filtration Rate 62 mL/min (>60); Est Glom Filt Rate - Afr Amer 74 mL/min (>60); Glucose 112 mg/dL (74-106); Potassium 4.4 mmol/L (3.5-5.1); Sodium Level 139 mmol/L (136-145); Uric Acid 6.2 mg/dL (3.5-7.2)
== END | disposition home or self-care (01) ==
LOC: BIMLAB 13:34
PROVIDERS: PCP Internal Medicine; Referring Provider Internal Medicine; Visit Provider Internal Medicine
DX: I10 Essential (primary) hypertension (principal); M10.9 Gout, unspecified
CPT/HCPCS: 36415; 80048; 84550

== ENCOUNTER → 2024-02-14 | Outpatient (CLI) | payer MEDICARE, SELFPAY ==
[2024-02-14 13:09] LABS: PSA,Total- Diagnostic 5.88 ng/mL (0.0-4.0)
== END | disposition home or self-care (01) ==
LOC: LAB 11:38
PROVIDERS: PCP Internal Medicine; Referring Provider Urology; Visit Provider Urology
DX: R97.20 Elevated prostate specific antigen [PSA] (principal)
CPT/HCPCS: 36415; 84153

== ENCOUNTER → 2024-04-01 | Outpatient (CLI) | payer MEDICARE, SELFPAY ==
[2024-04-01 15:11] LABS: Absolute Lymphocyte Count 1.91 X10^3/uL (0.83-4.51); Absolute Neutrophil Count 4.7 X10^3/uL (2.0-7.7); Basophil# 0.03 X10^3/uL; Basophil% 0.4 % (0-1); Eosinophil# 0.08 X10^3/uL; Eosinophils% 1.1 % (0-5); Hemoglobin 13.7 g/dL (13.0-16.5); Lymphocyte # 1.91 X10^3/ul (0.83-4.51); Lymphocyte % 26.1 % (19-41); Mean Corp Hgb Conc 33.4 g/dL (32-36); Mean Corpuscular Hgb 31.1 pg (27.0-32.0); Mean Corpuscular Volume 93.2 fL (80-94); Mean Platelet Vol. 10.2 fl (6.2-12.0); Monocyte# 0.55 X10^3/uL; Monocyte% 7.5 % (0-10); NRBC Flagged by Analyzer 0 % (0-5); Neutrophil # 4.73 X10^3/uL (2.7-7.7); Neutrophil % 64.6 % (47-70); Platelet Count 283 K/mm3 (150-450); RBC Distribution Width CV 13.7 % (11.6-14.6); White Blood Count 7.3 K/mm3 (4.4-11.0)
[2024-04-01 15:52] LABS: ALB/GLOB Ratio 1.2 RATIO (0.9-2.4); AST(SGOT) 18 U/L (15-37); Alanine Aminotransfer ALT/SGPT 29 U/L (16-61); Alkaline Phosphatase 83 U/L (45-117); Anion Gap 6 (5-15); BUN 25 mg/dL (7-18); BUN/Creat Ratio 19.2 RATIO (10-20); Calcium,Total 9.6 mg/dL (8.5-10.1); Chloride 105 mmol/L (98-107); Cholesterol 180 mg/dL (200); EST Glomerular Filtration Rate 57 mL/min (>60); Est Glom Filt Rate - Afr Amer 68 mL/min (>60); Globulin 3.4 g/dL (2.2-4.2); Glucose 123 mg/dL (74-106); High Density Lipoprotein 64 mg/dL; Potassium 4.2 mmol/L (3.5-5.1); Protein, Total 7.4 g/dL (6.4-8.2); Sodium Level 137 mmol/L (136-145); Triglycerides 151 mg/dL; Very Low Density Lipoprotein 30 mg/dL (5-40)
== END | disposition home or self-care (01) ==
LOC: BIMLAB 13:14
PROVIDERS: PCP Internal Medicine; Visit Provider Internal Medicine
DX: I10 Essential (primary) hypertension (principal)
CPT/HCPCS: 36415; 80053; 80061; 85025

== ENCOUNTER → 2024-06-03 | Outpatient (CLI) | payer MEDICARE, SELFPAY ==
[2024-06-03 11:00] LABS: Bacteria 0 SEEN /hpf (None Seen); Mucous, Urine 0 SEEN /hpf (<or=2+); Red Blood Cells-Urine 0 SEEN /hpf (0-5); Squamous Epithelial Cells - UA 0 SEEN /hpf (0-5); White Blood Cells 0 SEEN /hpf (0-5)
[2024-06-03 12:07] LABS: Color, Urine Yellow (Yellow); Glucose, Dipstick Normal (Normal); Ketone-Dipstick Negative (Negative); Leukocyte Esterase-Dipstick Negative /ul (Negative); Nitrite-Dipstick Negative (Negative); Occult Blood-Urine 25 /ul (Negative); Protein-Dipstick Negative (Negative); Urine Bilirubin Dipstick Negative (Negative); Urine Clarity Clear (Clear); Urine Urobilinogen Normal (Normal)
[2024-06-03 12:24] LABS: Absolute Lymphocyte Count 1.74 X10^3/uL (0.83-4.51); Absolute Neutrophil Count 4.5 X10^3/uL (2.0-7.7); Basophil# 0.05 X10^3/uL; Basophil% 0.7 % (0-1); Eosinophil# 0.07 X10^3/uL; Hematocrit 41.5 % (40-54); Hemoglobin 14.2 g/dL (13.0-16.5); Lymphocyte # 1.74 X10^3/ul (0.83-4.51); Lymphocyte % 25.4 % (19-41); Mean Corp Hgb Conc 34.2 g/dL (32-36); Mean Corpuscular Hgb 31.8 pg (27.0-32.0); Mean Corpuscular Volume 92.8 fL (80-94); Mean Platelet Vol. 9.7 fl (6.2-12.0); Monocyte# 0.49 X10^3/uL; Monocyte% 7.1 % (0-10); NRBC Flagged by Analyzer 0 % (0-5); Neutrophil # 4.48 X10^3/uL (2.7-7.7); Neutrophil % 65.4 % (47-70); Platelet Count 235 K/mm3 (150-450); RBC Distribution Width CV 13.2 % (11.6-14.6); RBC Distribution Width SD 44.9 fl (35.1-43.9); Red Blood Count 4.47 M/mm3 (4.6-6.2); White Blood Count 6.9 K/mm3 (4.4-11.0)
[2024-06-03 12:27] LABS: Anion Gap 5 (5-15); BUN 25 mg/dL (7-18); BUN/Creat Ratio 21.4 RATIO (10-20); Calcium,Total 9.5 mg/dL (8.5-10.1); Chloride 109 mmol/L (98-107); Creatinine, Serum 1.17 mg/dL (0.70-1.30); EST Glomerular Filtration Rate 64 mL/min (>60); Est Glom Filt Rate - Afr Amer 77 mL/min (>60); Glucose 128 mg/dL (74-106); Sodium Level 139 mmol/L (136-145)
== END | disposition home or self-care (01) ==
LOC: BIMLAB 10:58
PROVIDERS: PCP Internal Medicine; Referring Provider Internal Medicine; Visit Provider Internal Medicine
DX: R31.9 Hematuria, unspecified (principal)
CPT/HCPCS: 36415; 80048; 81001; 85025

== ENCOUNTER → 2024-10-05 | Outpatient (CLI) | payer MEDICARE, SELFPAY ==
[2024-10-05 15:40] LABS: Anion Gap 8 (5-15); BUN 21 mg/dL (7-18); BUN/Creat Ratio 17.9 RATIO (10-20); Calcium,Total 9.5 mg/dL (8.5-10.1); Chloride 107 mmol/L (98-107); Creatinine, Serum 1.17 mg/dL (0.70-1.30); EST Glomerular Filtration Rate 64 mL/min (>60); Est Glom Filt Rate - Afr Amer 77 mL/min (>60); Glucose 134 mg/dL (74-106); Sodium Level 139 mmol/L (136-145); Uric Acid 5.4 mg/dL (3.5-7.2)
== END | disposition home or self-care (01) ==
LOC: BIMLAB 13:39
PROVIDERS: PCP Internal Medicine; Referring Provider Internal Medicine; Visit Provider Internal Medicine
DX: M10.9 Gout, unspecified (principal); I10 Essential (primary) hypertension
CPT/HCPCS: 36415; 80048; 84550

== ENCOUNTER → 2025-01-27 | Outpatient (CLI) | payer MEDICARE, SELFPAY ==
[2025-01-27 13:45] LABS: PSA,Total- Diagnostic 4.71 ng/mL (0.00-4.00)
== END | disposition home or self-care (01) ==
LOC: LAB 12:54
PROVIDERS: PCP Internal Medicine; Referring Provider Urology; Visit Provider Urology
DX: R97.20 Elevated prostate specific antigen [PSA] (principal)
CPT/HCPCS: 36415; 84153

== ENCOUNTER → 2025-04-05 | Outpatient (CLI) | payer MEDICARE, SELFPAY ==
[2025-04-05 15:42] LABS: Absolute Lymphocyte Count 1.95 X10^3/uL (0.83-4.51); Absolute Neutrophil Count 3.9 X10^3/uL (2.0-7.7); Basophil# 0.04 X10^3/uL; Basophil% 0.6 % (0-1); Eosinophil# 0.08 X10^3/uL; Eosinophils% 1.2 % (0-5); Hemoglobin 14.1 g/dL (13.0-16.5); Lymphocyte # 1.95 X10^3/ul (0.83-4.51); Lymphocyte % 29.6 % (19-41); Mean Corp Hgb Conc 33.6 g/dL (32-36); Mean Corpuscular Hgb 31.8 pg (27.0-32.0); Mean Corpuscular Volume 94.6 fL (80-94); Mean Platelet Vol. 10.1 fl (6.2-12.0); Monocyte% 9.1 % (0-10); NRBC Flagged by Analyzer 0 % (0-5); Neutrophil # 3.88 X10^3/uL (2.7-7.7); Platelet Count 249 K/mm3 (150-450); RBC Distribution Width CV 13.8 % (11.6-14.6); RBC Distribution Width SD 47.9 fl (35.1-43.9); Red Blood Count 4.44 M/mm3 (4.6-6.2); White Blood Count 6.6 K/mm3 (4.4-11.0)
[2025-04-05 16:08] LABS: ALB/GLOB Ratio 1.6 RATIO (0.9-2.4); AST(SGOT) 26 U/L (<=37); Alanine Aminotransfer ALT/SGPT 25 U/L (<=46); Albumin, Serum 4.5 g/dL (3.4-4.8); Alkaline Phosphatase 84 U/L (40-129); Anion Gap 11 (5-15); BUN 21 mg/dL (4-19); Calcium,Total 9.8 mg/dL (7.6-11.0); Carbon Dioxide 23.9 mmol/L (21.0-32.0); Chloride 104 mmol/L (98-108); Cholesterol 201 mg/dL (<=200); Creatinine, Serum 1.15 mg/dL (0.70-1.20); EST Glomerular Filtration Rate 64 (>60); Globulin 2.7 g/dL (2.2-4.2); Glucose 121 mg/dL (70-99); High Density Lipoprotein 64 mg/dL; Low Density Lipoprotein Calc. 104 mg/dL; Potassium 4.6 mmol/L (3.3-5.1); Protein, Total 7.2 g/dL (5.9-8.4); Sodium Level 139 mmol/L (133-145); Total Bilirubin 0.45 mg/dL (0.00-1.30); Triglycerides 166 mg/dL; Very Low Density Lipoprotein 33 mg/dL (5-40); cholesterol:hdl ratio screen 3.14
== END | disposition home or self-care (01) ==
LOC: BIMLAB 13:24
PROVIDERS: PCP Internal Medicine; Referring Provider Internal Medicine; Visit Provider Internal Medicine
DX: I10 Essential (primary) hypertension (principal)
CPT/HCPCS: 36415; 80053; 80061; 85025